=== PATIENT | female | born 1955 | race Asian ===

== ENCOUNTER 2019-06-08 11:19 | Emergency (ER) | payer MEDICARE, OTHER, BC ==
[2019-06-08 13:14] LABS: ADD MAN DIFF? NO
[2019-06-08 13:20] LABS: WHITE BLOOD COUNT 8.8 10^3/ul (4.8-10.8)
[2019-06-08 13:20] LABS: ABNORMAL IP MESSAGE 1; BASOPHILS % 0.3 % (0.0-2.0); EOSINOPHILS # 0.1 10^3/ul (0.0-0.5); EOSINOPHILS % 1.6 % (0.0-7.0); HEMATOCRIT 40.8 % (37.0-47.0); HEMOGLOBIN 13.1 g/dl (12.0-16.0); LYMPHOCYTES # 0.5 10^3/ul (0.8-2.9); LYMPHOCYTES % 5.5 % (15.0-51.0); MEAN CORPUSCULAR HEMOGLOBIN 29.4 pg (29.0-33.0); MEAN CORPUSCULAR HGB CONC 32.1 g/dl (32.0-37.0); MEAN CORPUSCULAR VOLUME 91.7 fl (82.0-101.0); MEAN PLATELET VOLUME 9.7 fl (7.4-10.4); MONOCYTE # 0.4 10^3/ul (0.3-0.9); MONOCYTES % 4.6 % (0.0-11.0); NEUTROPHIL # 7.7 10^3/ul (1.6-7.5); NEUTROPHILS % 87.5 % (39.0-77.0); PLATELET COUNT 171 10^3/UL (140-415); RED BLOOD COUNT 4.45 10^6/ul (4.20-5.40)
[2019-06-08 13:26] LABS: POSITIVE DIFF @See below
[2019-06-08 13:48] LABS: ALANINE AMINOTRANSFERASE 29 IU/L (13-69); ALBUMIN 3.4 g/dl (3.3-4.9); ALBUMIN/GLOBULIN RATIO 1.36; ALKALINE PHOSPHATASE 69 IU/L (42-121); ANION GAP 5 (5-13); ASPARTATE AMINO TRANSFERASE 65 IU/L (15-46); BILIRUBIN,INDIRECT 0.5 mg/dl (0-1.1); BILIRUBIN,TOTAL 0.5 mg/dl (0.2-1.3); BLOOD UREA NITROGEN 25 mg/dl (7-20); CALCIUM 9.2 mg/dl (8.4-10.2); CARBON DIOXIDE 24 mmol/L (21-31); CHLORIDE 109 mmol/L (97-110); CREATININE 1.32 mg/dl (0.44-1.00); Estimated GFR 41 mL/min (>60); GLUCOSE 146 mg/dl (70-220); LIPASE 76 U/L (23-300); POTASSIUM 4.5 mmol/L (3.5-5.1); SODIUM 138 mmol/L (135-144); TOTAL PROTEIN 5.9 g/dl (6.1-8.1)
[2019-06-08 14:00] LABS: B-TYPE NATRIURETIC PEPTIDE 1220 PG/ML (0-125); TROPONIN-I < 0.012 ng/ml (0.000-0.120)
== END 2019-06-08 14:55 | disposition home or self-care (01) ==
LOC: E/R 11:19
DX: R60.0 Localized edema (principal); Z79.82 Long term (current) use of aspirin; Z94.1 Heart transplant status
CPT/HCPCS: 36415; 71045; 80053; 83690; 83880; 84484; 85025; 93005; 93971; 99284-25